=== PATIENT | female | born 1985 | race American Indian/Alaskan Native ===

== ENCOUNTER 2019-01-23 07:00 | Day surgery (SDC) | payer MEDICAID, OTHER ==
[~2019-01-23 07:00] MED LIST: MARCAINE 0.5% INFILTRATI ONE
[2019-01-23] MEDS ORDERED: SUBLIMAZE IV PRN (07:50)
[2019-01-23] MEDS ORDERED: ZOFRAN IV PRN (07:50)
--- NOTE | 2019-01-23 07:53 | Anesthesia Day of Surgery ---
Anesthesia Day of Surgery - Day of Surgery Patient Examined: Yes Patient H&P Reviewed: Yes Patient is NPO: Yes
--- NOTE | 2019-01-23 07:56 | Anesthesia Consultation ---
Anesthesia Consult and Med Hx Date of service: 01/23/19 - Airway Anesthetic Teeth Evaluation: Good ROM Head & Neck: Adequate Mental/Hyoid Distance: Adequate Mallampati Class: Class II Intubation Access Assessment: Probably Good - Pre-Operative Health Status ASA Pre-Surgery Classification: ASA2 Proposed Anesthetic Plan: General - Pulmonary Hx Asthma: Yes (LAST ATTACK 11/2018; RESCUE INHALER AND NEBS) - Cardiovascular System Hx Hypertension: Yes (Increased BP when on periods) - Central Nervous System Hx Back Pain: Yes Hx Psychiatric Problems: Yes - Gastrointestinal Hx Ulcer: Yes Hx Gastroesophageal Reflux Disease: Yes - Other Systems Hx Alcohol Use: No Hx Substance Use: No Hx Cancer: No
[2019-01-23] MEDS ORDERED: MORPHINE IV NR (07:59)
[2019-01-23] MEDS ORDERED: TYLENOL PO NR (07:59)
[2019-01-23] MEDS ORDERED: LACTATED RINGERS 1,000 ML IV SCH (08:00)
[2019-01-23] MEDS ORDERED: VERSED IV NR (08:00)
[2019-01-23] MEDS ORDERED: MARCAINE 0.5% INFILTRATI ONE ×2 (09:02→10:35)
[2019-01-23] MEDS ORDERED: SUBLIMAZE ONE ×2 (09:13→10:14)
[2019-01-23] MEDS ORDERED: DIPRIVAN 10 MG/ML IV ONE (09:14)
[2019-01-23] MEDS ORDERED: XYLOCAINE MPF 2% ONE (09:14)
[2019-01-23] MEDS ORDERED: ZEMURON IV ONE (09:15)
--- NOTE | 2019-01-23 09:27 | Short Stay Summary ---
Short Stay Documentation Date of service: 01/23/19 Narrative H&P: Pt is a 33yo HF LMP 01/21/19 presents for surgical evaluation and treatment of a Right ovarian cyst. Pelvic u/s showed the uterus 6.7 x 3.9 x 4.2cm with a 5.1 x 3.6 x 4.6cm right ovarian cyst unresolved with OCP's. She now presents for a Laproscopic right ovarian cystectomy. - History Principal diagnosis: Right ovarian cyst H&P: obtained from office Past Medical History: No medical history Past Surgical History: No surgical history Social history: no significant social history, single - Allergies and Medications Current Medications: Allergies Seafood Allergy (Uncoded 01/22/19 09:49) Anaphylaxis Home Medications Medication Instructions Recorded Confirmed Last Taken Type ALBUTEROL NEB's [Proventil] 2.5 mg IH TID PRN 01/22/19 01/23/19 09/13/18 12:00 History Albuterol Sulfate [Proventil Hfa] 6.7 gm IH Q4H PRN 01/22/19 01/23/19 01/22/19 12:00 History Desogestrel-Ethinyl Estradiol 1 each PO QDAY 01/22/19 01/23/19 01/22/19 21:00 History [Reclipsen 28 Day Tablet] Fluticasone [Flonase] 1 spray NS QDAY 01/22/19 01/23/19 01/22/19 07:00 History Gabapentin [Neurontin] 600 mg PO QPM 01/22/19 01/23/19 01/22/19 21:00 History Loratadine/Pseudoephedrine 1 tab PO DAILY 01/22/19 01/23/19 01/22/19 07:00 History [Claritin-D 24Hr] Multivit with Calcium,Iron,Min 1 each PO QDAY 01/22/19 01/23/19 01/22/19 07:00 History [One Daily Women's] Omeprazole Magnesium [PriLOSEC Otc] 20 mg PO QDAY 01/22/19 01/23/19 01/22/19 07:00 History Active Medications Acetaminophen (Tylenol) 650 mg PO ONCE NR Stop: 01/23/19 12:00 Last Admin: 01/23/19 08:30 Dose: 650 mg Documented by: Celecoxib (Celebrex) 200 mg PO PREOP NR Stop: 01/23/19 12:00 Last Admin: 01/23/19 08:30 Dose: 200 mg Documented by: Fentanyl (Sublimaze) 50 mcg IV Q5MIN PRN PRN Reason: Pain , Severe (7-10) Stop: 01/23/19 20:00 Lactated Ringer's (Lactated Ringers) 1,000 mls @ 125 mls/hr IV DIRECT DIANNA Last Admin: 01/23/19 08:30 Dose: 125 mls/hr Documented by: Midazolam HCl (Versed) 2 mg IV PREOP NR Stop: 01/23/19 23:59 Morphine Sulfate (Morphine) 2 mg IV ONCE NR Stop: 01/23/19 12:00 Last Admin: 01/23/19 08:50 Dose: 2 mg Documented by: Ondansetron HCl (Zofran) 4 mg IV ONCE PRN PRN Reason: Nausea And Vomiting Stop: 01/23/19 12:00 - Physical exam General appearance: no acute distress Integumentary: no rash HEENT: Atraumatic Lungs: Clear to auscultation Breasts: deferred Heart: Regular rate Gastrointestinal: normal Female Genitourinary: deferred Rectal Exam: deferred Extremities: no ischemia, No edema Neurological: Normal gait, Normal speech - Brief post op/procedure progress note Date of procedure: 01/23/19 Pre-op diagnosis: 1. Pelvic pain 2. Right ovarian cyst Post-op diagnosis: same (Ruptured right ovarian cyst) Procedure: Diagnostic laparoscopy Anesthesia: GETA Findings: A normal uterus with normal tubes and ovaries bilaterally. [id number] of blood in the peritoneal cavity. Normal appendix. Surgeon: CANDIS KC Estimated blood loss: minimal Pathology: none Condition: stable - Hospital course Hospital course: Unremarkable. - Disposition Condition at discharge: Good Disposition: [id number]-01 TO HOME OR SELFCARE - Discharge Diagnoses (1) Ruptured ovarian cyst Status: Resolved Short Stay Discharge Plan Activity: no restrictions Diet: regular Wound: open to air, keep clean and dry Follow up with: PRIMARY CARE, [Primary Care Provider] - 7 Days CANDIS KC MD [Staff Physician] - 14 Days Prescriptions: HYDROcodone/APAP 5-325 [[place] 5/325] 1 each PO Q6HR PRN #20 tablet PRN Reason: Pain
[2019-01-23 09:36] LABS: Hemoglobin 12.2 gm/dl (10.1-14.3)
[2019-01-23] MEDS ORDERED: ANCEF/STERILE WATER 2 GM/20 ML 2 GM/20 ML SYRINGE IV NR (10:00)
[2019-01-23] MEDS ORDERED: DECADRON ONE (10:00)
[2019-01-23] MEDS ORDERED: ZOFRAN ONE (10:00)
[2019-01-23] MEDS ORDERED: ROBINUL ONE (10:34)
[2019-01-23] MEDS ORDERED: BLOXIVERZ ONE (10:34)
[2019-01-23] MEDS ORDERED: NORCO 5/325 PO PRN (11:24)
[2019-01-23 12:13] VITALS: BP 135/79
--- NOTE | 2019-01-23 16:07 | Operative Report ---
Operative Report Operative Report: Date of procedure: 01/23/2019 Pre-operative diagnosis: 1. Pelvic pain 2. Right ovarian cyst Post-operative diagnosis: 1. Ruptured right ovarian cyst Procedure name(s): Diagnostic Laparoscopy Surgeon: Umberto Mina MD Processor Inspector: None Anesthesia: Gen. endotracheal intubation by Dr. Dinh EBL: Minimal Findings: A normal uterus with normal tubes and ovaries bilaterally. Approximately 10-20mls of blood in the peritoneal cavity. Normal appendix. Procedure: After the patient was correctly identified, she was prepped and draped in the usual sterile fashion and placed in the lithotomy position. Next the bladder was emptied using a Lopez catheter, and the speculum space and the vaginal vault. The anterior lip of the cervix was grasped using single-tooth tenaculum and the uterine manipulator was then placed and the tenaculum and speculum were removed. Attention was then turned to the abdomen where first a periumbilical incision was made using the skin knife, and the Optiview trocar was inserted under direct visualization. After an adequate amount for abdominal insufflation, visualization of the pelvic organs found a small amount of blood in the peritoneal cavity. A suprapubic incision was made through which a 5 mm trocar was placed in order to manipulate the pelvic organs. The uterus appeared to be normal with normal fallopian tubes and ovaries bilaterally. Copious amounts of irrigation was then performed, and after good hemostasis was assured. The procedure was considered complete. All instruments are then removed from the abdomen, the abdomen deflated, and the periumbilical incision was closed using 0 Vicryl suture in a [id number] configuration of the fascia followed by 4 Monocryl suture in a sub-cuticular fashion on the skin. The suprapubic incision was closed in similar fashion. Each incision was infiltrated using 0.5% Marcaine solution. The uterine manipulator was removed. The Lopez catheter also removed. The patient tolerated the procedure well and was transported to recovery room in stable condition.
--- NOTE | 2019-01-23 16:10 | Post Anesthesia Evaluation ---
- Post Anesthesia Evaluation Patient Participated: Yes Airway Patent: Yes Stable Respiratory Function: Yes Nausea/Vomiting: No Temp > 96.8F: Yes Pain Manageable: Yes Adequeate Hydration: Yes Anesthesia Complications: No Block Receding Appropriately: Not Applicable Patient on Ventilator: No
== END 2019-01-23 12:25 | disposition home or self-care (01) ==
LOC: OR 07:00
PROVIDERS: ATTEND Obstetrics & Gynecology
DX: N83.201 Unspecified ovarian cyst, right side (principal); I10 Essential (primary) hypertension; J45.909 Unspecified asthma, uncomplicated; K21.9 Gastro-esophageal reflux disease without esophagitis; F41.9 Anxiety disorder, unspecified; Z98.890 Other specified postprocedural states; Z79.899 Other long term (current) drug therapy; Z91.013 Allergy to seafood
CPT/HCPCS: 36415; 49320; 81025; 85014; 85018; C9250; J1100; J2250; J2270; J2405; J2704; J2710; J3010; J7120

== ENCOUNTER 2019-03-05 16:54 | Emergency (ER) | payer OTHER ==
--- NOTE | 2019-03-05 18:06 | Emergency Department Report ---
Blank Doc - Documentation Documentation: 33-year-old female that presents with left sided abdominal pain. Denies any n /v. This initial assessment/diagnostic orders/clinical plan/treatment(s) is/are subject to change based on patient's health status, clinical progression and re- assessment by fellow clinical providers in the ED. Further treatment and workup at subsequent clinical providers discretion. Patient/guardians urged not to elope from the ED as their condition may be serious if not clinically assessed and managed. Initial orders include: 1- Patient sent to [facility] for further evaluation and treatment 2- labs 3- UA
[2019-03-05 18:57] LABS: Bacteria,Urine 3+ /HPF (Negative); Bilirubin,Urine NEG (Negative); Blood,Urine MOD (Negative); Color,Urine Yellow (Yellow); Mucus,Urine FEW /HPF; Protein,Urine <15 mg/dL mg/dL (Negative); Urobilinogen,Urine < 2.0 mg/dL (<2.0)
[2019-03-05 19:48] LABS: Alanine Aminotransferase 15 units/L (7-56); Albumin 3.8 g/dL (3.9-5); BUN/Creatinine Ratio 13; Blood Urea Nitrogen 8 mg/dL (7-17); Calcium 8.8 mg/dL (8.4-10.2); Hemolysis Index 8
[2019-03-05 19:52] LABS: Basophils # (Auto) 0.1 K/mm3 (0.0-0.1); Basophils % (Auto) 0.9 % (0.0-1.8); Eosinophils # (Auto) 0.2 K/mm3 (0.0-0.4); Eosinophils % (Auto) 2.1 % (0.0-4.3); Hematocrit 36.1 % (30.3-42.9); Hemoglobin 11.9 gm/dl (10.1-14.3); Lymphocytes # (Auto) 2.4 K/mm3 (1.2-5.4); Lymphocytes % (Auto) 20.6 % (13.4-35.0); Mean Corpuscular HGB Conc 33 % (30-34); Mean Corpuscular Volume 94 fl (79-97); Monocytes # (Auto) 0.5 K/mm3 (0.0-0.8); Monocytes % (Auto) 4.8 % (0.0-7.3); Platelet Count 346 K/mm3 (140-440); Red Blood Count 3.83 M/mm3 (3.65-5.03)
--- NOTE | 2019-03-05 21:20 | Emergency Department Report ---
ED General Adult HPI - General Chief complaint: Abdominal Pain Stated complaint: DOC SENT/LFT SIDE ABD PAIN Time Seen by Provider: 03/05/19 18:05 Source: patient Mode of arrival: Ambulatory Limitations: No Limitations - History of Present Illness Initial comments: Patient is a 33-year-old female who is one month status post surgery for a large ruptured ovarian cysts. Patient was on a course of either amoxicillin or Augmentin after the surgery. Patient is states that for the last of several weeks is has some increased discomfort in the suprapubic region which is now radiating to the left phalanx. She has some urinary frequency and some discomfort with urination. Patient states he is a progressively worsening. States pain as 8 out of 10 in severity. Patient denies any fevers chills cough cold congestion or sore throat. - Related Data Home Medications Medication Instructions Recorded Confirmed Last Taken ALBUTEROL NEB's [Proventil] 2.5 mg IH TID PRN 01/22/19 01/23/19 09/13/18 12:00 Albuterol Sulfate [Proventil Hfa] 6.7 gm IH Q4H PRN 01/22/19 01/23/19 01/22/19 12:00 Desogestrel-Ethinyl Estradiol 1 each PO QDAY 01/22/19 01/23/19 01/22/19 21:00 [Reclipsen 28 Day Tablet] Fluticasone [Flonase] 1 spray NS QDAY 01/22/19 01/23/19 01/22/19 07:00 Gabapentin [Neurontin] 600 mg PO QPM 01/22/19 01/23/19 01/22/19 21:00 Loratadine/Pseudoephedrine 1 tab PO DAILY 01/22/19 01/23/19 01/22/19 07:00 [Claritin-D 24Hr] Multivit with Calcium,Iron,Min 1 each PO QDAY 01/22/19 01/23/19 01/22/19 07:00 [One Daily Women's] Omeprazole Magnesium [PriLOSEC Otc] 20 mg PO QDAY 01/22/19 01/23/19 01/22/19 07:00 Previous Rx's Medication Instructions Recorded Last Taken Type HYDROcodone/APAP 5-325 [[place] 1 each PO Q6HR PRN #20 tablet 01/23/19 Unknown Rx 5/325] Ibuprofen [Motrin 600 MG tab] 600 mg PO Q8H PRN #20 tablet 03/05/19 Unknown Rx Ondansetron [Zofran Odt] 4 mg PO Q8HR #10 tab.rapdis 03/05/19 Unknown Rx levoFLOXacin [Levaquin TAB] 500 mg PO QDAY #7 tablet 03/05/19 Unknown Rx traMADol [Ultram] 50 mg PO Q6HR PRN #12 tablet 03/05/19 Unknown Rx Allergies Allergy/AdvReac Type Severity Reaction Status Date / Time Seafood Allergy Anaphylaxis Uncoded 01/22/19 09:49 ED Review of Systems ROS: Stated complaint: DOC SENT/LFT SIDE ABD PAIN Other details as noted in HPI Comment: All other systems reviewed and negative ED Past Medical Hx - Past Medical History Hx Hypertension: Yes (Increased BP when on periods) Hx GERD: Yes Hx Asthma: Yes (LAST ATTACK 11/2018; RESCUE INHALER AND NEBS) Hx HIV: No - Surgical History Additional Surgical History: cyst removed - Social History Smoking Status: Never Smoker Substance Use Type: None - Medications Home Medications: Home Medications Medication Instructions Recorded Confirmed Last Taken Type ALBUTEROL NEB's [Proventil] 2.5 mg IH TID PRN 01/22/19 01/23/19 09/13/18 12:00 History Albuterol Sulfate [Proventil Hfa] 6.7 gm IH Q4H PRN 01/22/19 01/23/19 01/22/19 12:00 History Desogestrel-Ethinyl Estradiol 1 each PO QDAY 01/22/19 01/23/19 01/22/19 21:00 History [Reclipsen 28 Day Tablet] Fluticasone [Flonase] 1 spray NS QDAY 01/22/19 01/23/19 01/22/19 07:00 History Gabapentin [Neurontin] 600 mg PO QPM 01/22/19 01/23/19 01/22/19 21:00 History Loratadine/Pseudoephedrine 1 tab PO DAILY 01/22/19 01/23/19 01/22/19 07:00 History [Claritin-D 24Hr] Multivit with Calcium,Iron,Min 1 each PO QDAY 01/22/19 01/23/19 01/22/19 07:00 History [One Daily Women's] Omeprazole Magnesium [PriLOSEC Otc] 20 mg PO QDAY 01/22/19 01/23/19 01/22/19 07:00 History HYDROcodone/APAP 5-325 [[place] 1 each PO Q6HR PRN #20 tablet 01/23/19 Unknown Rx 5/325] Ibuprofen [Motrin 600 MG tab] 600 mg PO Q8H PRN #20 tablet 03/05/19 Unknown Rx Ondansetron [Zofran Odt] 4 mg PO Q8HR #10 tab.rapdis 03/05/19 Unknown Rx levoFLOXacin [Levaquin TAB] 500 mg PO QDAY #7 tablet 03/05/19 Unknown Rx traMADol [Ultram] 50 mg PO Q6HR PRN #12 tablet 03/05/19 Unknown Rx ED Physical Exam - General Limitations: No Limitations General appearance: alert, in no apparent distress - Head Head exam: Present: atraumatic, normocephalic - Eye Eye exam: Present: normal appearance, PERRL, EOMI - ENT ENT exam: Present: mucous membranes moist - Neck Neck exam: Present: normal inspection - Respiratory Respiratory exam: Present: normal lung sounds bilaterally. Absent: respiratory distress, wheezes, rales, rhonchi - Cardiovascular Cardiovascular Exam: Present: regular rate, normal rhythm, normal heart sounds. Absent: systolic murmur, diastolic murmur, rubs, gallop - GI/Abdominal GI/Abdominal exam: Present: soft, tenderness (suprapubic (mild)), normal bowel sounds. Absent: distended, guarding, rebound - Extremities Exam Extremities exam: Present: normal inspection - Back Exam Back exam: Present: normal inspection - Neurological Exam Neurological exam: Present: alert, oriented X3 - Psychiatric Psychiatric exam: Present: normal affect, normal mood - Skin Skin exam: Present: warm, dry, intact, normal color. Absent: rash ED Course Vital Signs 03/05/19 18:05 Temperature 98.4 F Pulse Rate 100 H Respiratory 17 Rate Blood Pressure 154/98 O2 Sat by Pulse 99 Oximetry ED Medical Decision Making - Lab Data Result diagrams: 03/05/19 18:40 03/05/19 18:40 Lab Results 03/05/19 03/05/19 03/05/19 Range/Units 18:20 18:40 18:40 WBC 11.5 H (4.5-11.0) K/mm3 RBC 3.83 (3.65-5.03) M/mm3 Hgb 11.9 (10.1-14.3) gm/dl Hct 36.1 (30.3-42.9) % MCV 94 (79-97) fl MCH 31 (28-32) pg MCHC 33 (30-34) % RDW 15.0 (13.2-15.2) % Plt Count 346 (140-440) K/mm3 Lymph % (Auto) 20.6 (13.4-35.0) % [place] % (Auto) 4.8 (0.0-7.3) % Eos % (Auto) 2.1 (0.0-4.3) % Baso % (Auto) 0.9 (0.0-1.8) % Lymph # 2.4 (1.2-5.4) K/mm3 [place] # 0.5 (0.0-0.8) K/mm3 Eos # 0.2 (0.0-0.4) K/mm3 Baso # 0.1 (0.0-0.1) K/mm3 Seg Neutrophils % 71.6 H (40.0-70.0) % Seg Neutrophils # 8.2 H (1.8-7.7) K/mm3 Sodium 140 (137-145) mmol/L Potassium 3.4 L (3.6-5.0) mmol/L Chloride 102.6 (98-107) mmol/L Carbon Dioxide 20 L (22-30) mmol/L Anion Gap 21 mmol/L BUN 8 (7-17) mg/dL Creatinine 0.6 L (0.7-1.2) mg/dL Estimated GFR > 60 ml/min BUN/Creatinine Ratio 13 % Glucose 96 (65-100) mg/dL Calcium 8.8 (8.4-10.2) mg/dL Total Bilirubin 0.20 (0.1-1.2) mg/dL AST 19 (5-40) units/L ALT 15 (7-56) units/L Alkaline Phosphatase 63 (35-129) units/L Total Protein 7.9 (6.3-8.2) g/dL Albumin 3.8 L (3.9-5) g/dL Albumin/Globulin Ratio 0.9 % HCG, Qual (Negative) Urine Color Yellow (Yellow) Urine Turbidity Slightly-cloudy (Clear) Urine pH 6.0 (5.0-7.0) Ur Specific [place] 1.010 (1.003-1.030) Urine Protein <15 mg/dl (Negative) mg/dL Urine Glucose (UA) Neg (Negative) mg/dL Urine Ketones Tr (Negative) mg/dL Urine Blood Mod (Negative) Urine Nitrite Neg (Negative) Urine Bilirubin Neg (Negative) Urine Urobilinogen < 2.0 (<2.0) mg/dL Ur Leukocyte Esterase Mod (Negative) Urine WBC (Auto) 10.0 H (0.0-6.0) /HPF Urine RBC (Auto) 8.0 (0.0-6.0) /HPF U Epithel Cells (Auto) 1.0 (0-13.0) /HPF Urine Bacteria (Auto) 3+ (Negative) /HPF Urine Mucus Few /HPF 03/05/19 Range/Units 18:40 WBC (4.5-11.0) K/mm3 RBC (3.65-5.03) M/mm3 Hgb (10.1-14.3) gm/dl Hct (30.3-42.9) % MCV (79-97) fl MCH (28-32) pg MCHC (30-34) % RDW (13.2-15.2) % Plt Count (140-440) K/mm3 Lymph % (Auto) (13.4-35.0) % [place] % (Auto) (0.0-7.3) % Eos % (Auto) (0.0-4.3) % Baso % (Auto) (0.0-1.8) % Lymph # (1.2-5.4) K/mm3 [place] # (0.0-0.8) K/mm3 Eos # (0.0-0.4) K/mm3 Baso # (0.0-0.1) K/mm3 Seg Neutrophils % (40.0-70.0) % Seg Neutrophils # (1.8-7.7) K/mm3 Sodium (137-145) mmol/L Potassium (3.6-5.0) mmol/L Chloride (98-107) mmol/L Carbon Dioxide (22-30) mmol/L Anion Gap mmol/L BUN (7-17) mg/dL Creatinine (0.7-1.2) mg/dL Estimated GFR ml/min BUN/Creatinine Ratio % Glucose (65-100) mg/dL Calcium (8.4-10.2) mg/dL Total Bilirubin (0.1-1.2) mg/dL AST (5-40) units/L ALT (7-56) units/L Alkaline Phosphatase (35-129) units/L Total Protein (6.3-8.2) g/dL Albumin (3.9-5) g/dL Albumin/Globulin Ratio % HCG, Qual Negative (Negative) Urine Color (Yellow) Urine Turbidity (Clear) Urine pH (5.0-7.0) Ur Specific [place] (1.003-1.030) Urine Protein (Negative) mg/dL Urine Glucose (UA) (Negative) mg/dL Urine Ketones (Negative) mg/dL Urine Blood (Negative) Urine Nitrite (Negative) Urine Bilirubin (Negative) Urine Urobilinogen (<2.0) mg/dL Ur Leukocyte Esterase (Negative) Urine WBC (Auto) (0.0-6.0) /HPF Urine RBC (Auto) (0.0-6.0) /HPF U Epithel Cells (Auto) (0-13.0) /HPF Urine Bacteria (Auto) (Negative) /HPF Urine Mucus /HPF - Medical Decision Making Since laboratory studies are consistent with a urinary tract infection. Patient will be started on Levaquin and will be discharged home. Critical care attestation.: If time is entered above; I have spent that time in minutes in the direct care of this critically ill patient, excluding procedure time. ED Disposition Clinical Impression: Acute cystitis Qualifiers: Hematuria presence: without hematuria Qualified Code(s): N30.00 - Acute cystitis without hematuria Disposition: TO HOME OR SELFCARE Is pt being admited?: No Does the pt Need Aspirin: No Condition: Stable Instructions: Urinary Tract Infection in Women (ED) Additional Instructions: Please follow-up with your primary care physician Time of Disposition: 21:18
[2019-03-05 21:32] VITALS: BP 132/78
== END 2019-03-05 21:32 | disposition home or self-care (01) ==
LOC: ED 16:54
DX: N30.00 Acute cystitis without hematuria (principal); I10 Essential (primary) hypertension; K21.9 Gastro-esophageal reflux disease without esophagitis; J45.909 Unspecified asthma, uncomplicated; Z79.899 Other long term (current) drug therapy; Z91.013 Allergy to seafood
CPT/HCPCS: 36415; 80053; 81001; 84703; 85025; 87086